=== PATIENT | male | born 1990 | race Caucasian/White ===

== ENCOUNTER 2018-08-24 00:28 | Emergency (ER) | payer OTHER ==
[~2018-08-24] VITALS: Ht 182.9 cm; Wt 127.3 kg
[2018-08-24 02:56] VITALS: BP 136/62
--- NOTE | 2018-08-24 02:59 | REP ---
Clinical: Trauma. Technique: AP, lateral, bilateral oblique views of the right knee. Findings: There is a transverse displaced fracture through the lower third of the patella with approximately 4.5 cm gap between fractured components as well as associated soft tissue swelling and effusion. The visualized femur and tibia / fibula appear intact. Impression: Transverse displaced fracture through the patella with significant gap as well as overlying soft tissue swelling and effusion. Electronically Signed by Claudy Choi MD 08/24/2018 02:51 A
== END 2018-08-24 02:57 | disposition home or self-care (01) ==
LOC: M ED 00:28 → EDBD 00:28 → M ED 02:57
DX: S82.002A Unspecified fracture of left patella, initial encounter for closed fracture (principal); V48.0XXA Car driver injured in noncollision transport accident in nontraffic accident, initial encounter